=== PATIENT | female | born 1940 | race Two or more races ===

== ENCOUNTER 2017-06-01 08:07 | Day surgery (SDC) | payer MEDICARE ==
[2017-05-25 16:31] VITALS: BMI 23.2
[2017-06-01] MEDS ORDERED: BUPIVACAINE HCL/PF 0.5% (5MG/ML) 10 ML VIAL ONE (09:27)
[2017-06-01] MEDS ORDERED: ACETYLCHOLINE 1:100 INTRA-OCUL 20 MG/2 ML KIT ONE (09:27)
[2017-06-01] MEDS ORDERED: LIDOCAINE HCL/PF 2% SDV 5ML VIAL ONE (09:27)
[2017-06-01] MEDS ORDERED: FLURBIPROFEN 0.03% OPHTH SOLN 2.5 ML BOTTLE ONE (09:34)
[2017-06-01] MEDS ORDERED: GENTAMICIN SULFATE 0.3% OPHTHALMIC (EYE DROPS) 5ML BOTTLE ONE (09:35)
[2017-06-01] MEDS ORDERED: PHENYLEPHRINE 2.5% OPHTH SOLN 15 ML BOTTLE ONE (09:35)
[2017-06-01] MEDS ORDERED: TROPICAMIDE 1% OPHTH SOLN 15 ML BOTTLE ONE (09:35)
[2017-06-01] MEDS ORDERED: CYCLOPENTOLATE HCL 1% OPHTH SOLN 2 ML BOTTLE ONE (09:35)
[2017-06-01] MEDS ORDERED: GENTAMICIN SULFATE 0.3% OPHTHALMIC (EYE DROPS) 5ML BOTTLE OD ONE ×2 (10:05→10:20)
[2017-06-01] MEDS ORDERED: CYCLOPENTOLATE HCL 1% OPHTH SOLN 2 ML BOTTLE OD ONE ×5 (10:05→10:25)
[2017-06-01] MEDS ORDERED: TROPICAMIDE 1% OPHTH SOLN 15 ML BOTTLE OD ONE ×5 (10:05→10:25)
[2017-06-01] MEDS ORDERED: PHENYLEPHRINE 2.5% OPHTH SOLN 15 ML BOTTLE OD ONE ×5 (10:05→10:25)
[2017-06-01] MEDS ORDERED: FLURBIPROFEN 0.03% OPHTH SOLN 2.5 ML BOTTLE OD ONE ×5 (10:05→10:25)
[2017-06-01 10:14] VITALS: TEMP 98.3
[2017-06-01] MEDS ORDERED: MIDAZOLAM HCL 2 MG/2 ML SINGLE DOSE VIAL ONE (11:54)
[2017-06-01] MEDS ORDERED: ACETAMINOPHEN 325 MG TABLET (FP) PO PRN (12:01)
[2017-06-01] MEDS ORDERED: PROPOFOL 20 ML ONE (12:11)
[2017-06-01 14:23] VITALS: BP 144/76; PULSE 76
--- NOTE | 2017-06-01 14:36 | OP ---
DATE OF OPERATION: 06/01/2017 TITLE OF THE PROCEDURE: Planned extracapsular cataract extraction, phacoemulsification, and insertion of posterior chamber lens implant. PREOPERATIVE DIAGNOSIS: Mature cataract, right eye, pupillary miosis, right eye, making cataract surgery more difficult. POSTOPERATIVE DIAGNOSIS: Mature cataract, right eye, pupillary miosis, right eye, making cataract surgery more difficult. SURGEON: Luis Sheehan MD MANAGER CATH LAB SURGEON: Luis Sheehan MD ANESTHESIA: Local standby. NURSE MACHINE OPERATOR REPLANTER: Gibson Spain CRNA ANESTHESIOLOGIST: Param Redman MD COMPLICATIONS: None. FINDINGS AND PROCEDURES: After peribulbar anesthesia was given in the OR, the patient was prepped and draped in the usual manner, exposed the right eye, and the Tegaderm strips and lid speculum were inserted in the eye, and microscope brought in a position over the eye. Superior fornix-based flap was then fashioned for 12 mm using Julia scissors and 0.12 forceps, and hemostasis achieved with electrocautery. A limbal groove was fashioned for 12 mm, and hemostasis was achieved with electrocautery. Limbal groove of 3 mm was creating, dissected anterior into clear cornea. Then, a 3-mm blade was used to enter the anterior chamber. Then, under Viscoat, a 360-degree anterior capsulotomy was performed and the leaflet removed from the eye. Phacoemulsification of the entire nucleus was done in approximately 2-1/2 minutes time, but it was difficult due to the fact that the pupil constricted, and it was done through a miotic pupil as was the cortical removal, which was also more difficult because of the pupillary miosis, but at the end, it was all removed, and the posterior capsule was intact and clean. Red reflex was present, and Provisc was injected into the posterior chamber to deepen the posterior capsule, and then the implant was inspected carefully and found to be free of defects debris, and flaws. It was folded and placed in the Provisc-filled cartridge, and the cartridge placed in the injector and then injected into the eye such that the inferior haptic was in the inferior capsular bag and the superior haptic was in the superior capsular bag and rotated in the horizontal position with the Sinskey hook. The Provisc was aspirated out, replaced with Miochol and Miostat and BSS, and the wound was closed with a single interrupted 10-0 Ethilon suture, which was tested for leaks and none were found. A conjunctival tenon flap was reapproximated. So, at this point, the implant was fixated in the capsular bag centrally located with the round pupil intact, posterior capsule and a red reflex present. Topical Betoptic S and Maxitrol ophthalmic suspensions were placed as was Bacitracin ophthalmic ointment, and then, the patch and shield were removed from the eye, and the patient was then discharged from the operating room to the recovery area in good condition having tolerated the procedure well. Shara [id number]
== END 2017-06-01 14:30 | disposition home or self-care (01) ==
LOC: FASU 08:07
PROVIDERS: ATTEND Ophthalmology
PROC: 08RJ3JZ Replacement of Right Lens with Synthetic Substitute, Percutaneous Approach (ICD-10-PCS; principal; 2017-06-01 12:32)
DX: H25.89 Other age-related cataract (principal); H57.03 Miosis

== ENCOUNTER 2017-07-20 10:40 | Day surgery (SDC) | payer MEDICARE ==
[2017-07-20] MEDS: PHENYLEPHRINE 2.5% OPHTH SOLN 15 ML BOTTLE ONE ×5 (11:10→11:30)
[2017-07-20] MEDS: FLURBIPROFEN 0.03% OPHTH SOLN 2.5 ML BOTTLE ONE ×5 (11:10→11:30)
[2017-07-20] MEDS: GENTAMICIN SULFATE 0.3% OPHTHALMIC (EYE DROPS) 5ML BOTTLE ONE ×2 (11:10→11:30)
[2017-07-20] MEDS: CYCLOPENTOLATE HCL 1% OPHTH SOLN 2 ML BOTTLE ONE ×5 (11:10→11:30)
[2017-07-20] MEDS: TROPICAMIDE 1% OPHTH SOLN 15 ML BOTTLE ONE ×5 (11:10→11:30)
[2017-07-20] MEDS ORDERED: POVIDONE-IODINE 5% OPHTHALMIC PREP 30 ML SOLUTION ONE (11:56)
[2017-07-20] MEDS ORDERED: LIDOCAINE HCL/PF 2% SDV 5ML VIAL ONE (11:56)
[2017-07-20] MEDS ORDERED: BUPIVACAINE HCL/PF 0.5% (5MG/ML) 10 ML VIAL ONE (11:56)
[2017-07-20] MEDS ORDERED: ACETYLCHOLINE 1:100 INTRA-OCUL 20 MG/2 ML KIT ONE (11:56)
[2017-07-20] MEDS ORDERED: ACETAMINOPHEN 325 MG TABLET (FP) PO PRN (12:00)
[2017-07-20] MEDS ORDERED: MIDAZOLAM HCL 2 MG/2 ML SINGLE DOSE VIAL ONE (12:43)
[2017-07-20] MEDS ORDERED: LIDOCAINE HCL 4% TOPICAL SOLN (50 ML/BOTTLE) ONE (12:43)
[2017-07-20] MEDS ORDERED: TRYPAN BLUE 0.5 ML DISP.SYRIN ONE (13:01)
[2017-07-20] MEDS ORDERED: ACETAMINOPHEN 325 MG TABLET (FP) ONE (13:55)
[2017-07-20 14:07] VITALS: TEMP 98.1
[2017-07-20 14:27] VITALS: BP 117/65; PULSE 74
--- NOTE | 2017-07-20 16:11 | OP ---
DATE OF OPERATION: 07/20/2017 TITLE OF PROCEDURE: Planned extracapsular cataract extraction and phacoemulsification and insertion of posterior chamber intraocular lens implant in the left eye. SURGEON: Emely Gamboa MD PI/SENIOR RESEARCH ASSOCIATE SURGEON: Emely Gamboa MD ANESTHESIA: Local standby. NURSE MECHANICAL SYSTEMS DESIGNER: Darvin Ortiz CRNA ANESTHESIOLOGIST: Unknown at this time. I think it is Dr. Collazo. PREOPERATIVE DIAGNOSIS: Mature cataract, left eye. POSTOPERATIVE DIAGNOSIS: Mature cataract, left eye. FINDINGS AND PROCEDURE: After successful peribulbar anesthesia, a lid block was given to the patient. In the operating room, the patient was prepped and draped in the usual manner to expose the left eye. A lid speculum and Tegaderm strips were placed on the lids, and the microscope brought into position over the eye. A temporal approach was used to enter the anterior chamber, with incisions made at the 2 o'clock and 5 o'clock positions, and trypan blue was injected after air was placed in the eye. This was then irrigated out with BSS. This was followed with Provisc. Viscoat was placed into the anterior chamber, and then, a capsulorrhexis was performed, followed by phacoemulsification divide and conquer technique in 4 quadrants, without complication, followed by irrigation and aspiration of all cortical material, leaving an intact posterior capsule and a red reflex present. Provisc was injected into the posterior chamber to deepen the posterior capsule. The implant was inspected carefully, found to be free of defects, debris, and flaws. It was placed in the cartridge and then injected into the posterior chamber and situated in the posterior chamber nicely. This was followed by irrigation and aspiration of the Viscoat and Provisc, and then, the wound was closed with single interrupted 2-0 Ethilon suture at the 2 o'clock incision site. At this point, the implant was fixated in the capsular bag, centrally located with a round pupil, intact posterior capsule, and red reflex present. It should be noted that after the Provisc and Viscoat was aspirated out, it was replaced with Miochol, Miostat, and BSS. A red reflex was present at the end of the procedure. Tegaderm strips and lid speculum were removed after the Betoptic and Maxitrol ophthalmic suspensions were placed as was bacitracin and polymyxin B ophthalmic ointment. The lids were closed, and a patch and shield placed on the eye. The patient was then discharged from the operating room to the recovery area in good condition, having tolerated the procedure well. EMELY GAMBOA M.D. [id number]
== END 2017-07-20 14:30 | disposition home or self-care (01) ==
LOC: FASU 10:40
PROVIDERS: ATTEND Ophthalmology
PROC: 08RK3JZ Replacement of Left Lens with Synthetic Substitute, Percutaneous Approach (ICD-10-PCS; principal; 2017-07-20 12:59)
DX: H25.89 Other age-related cataract (principal)